=== PATIENT | female | born 1990 | race Hispanic/Latino ===

== ENCOUNTER 2017-07-21 09:20 | Emergency (ER) | payer SELFPAY ==
[2017-07-21 09:33] VITALS: BP 156/108
[2017-07-21 10:16] LABS: BUN/Creatinine Ratio 20; Blood Urea Nitrogen 12 mg/dL (7-17); Calcium 9.1 mg/dL (8.4-10.2); Carbon Dioxide 27 mmol/L (22-30); Chloride 98.5 mmol/L (98-107); Glucose 139 mg/dL (65-100); Sodium 136 mmol/L (137-145)
[2017-07-21 10:31] LABS: Anion Gap 16 mmol/L
[2017-07-21 10:32] LABS: Potassium 5.5 mmol/L (3.6-5.0)
[2017-07-21 11:38] LABS: Bacteria,Urine 1+ /HPF (Negative); Bilirubin,Urine NEG (Negative); Blood,Urine NEG (Negative); Ketones,Urine NEG (Negative); Leukocyte Esterase,Urine LG (Negative); Mucus,Urine FEW /HPF; Nitrite,Urine NEG (Negative); Protein,Urine <15 mg/dL mg/dL (Negative); Urobilinogen,Urine < 2.0 mg/dL (<2.0)
[2017-07-21 12:37] LABS: Hematocrit 35.6 % (30.3-42.9); Hemoglobin 11.5 gm/dl (10.1-14.3); Mean Corpuscular HGB Conc 32 % (30-34); Mean Corpuscular Volume 75 fl (79-97); Platelet Count 361 K/mm3 (140-440); Red Blood Count 4.75 M/mm3 (3.65-5.03); White Blood Count 6.4 K/mm3 (4.5-11.0)
[2017-07-21 12:39] LABS: Mean Corpuscular Hemoglobin 24 pg (28-32)
[2017-07-21 16:30] LABS: Basophils % (Auto) 0.3 % (0.0-1.8); Eosinophils % (Auto) 1.6 % (0.0-4.3)
== END 2017-07-21 17:00 | disposition left against medical advice (07) ==
LOC: ED 09:20
DX: R10.9 Unspecified abdominal pain (principal); Z53.21 Procedure and treatment not carried out due to patient leaving prior to being seen by health care provider
CPT/HCPCS: 36415; 80048; 81001; 81025; 85007; 85025

== ENCOUNTER 2018-11-25 04:58 | Emergency (ER) | payer SELFPAY ==
[2018-11-25] MEDS ORDERED: MORPHINE IV ONE (05:05)
[2018-11-25] MEDS ORDERED: NACL 0.9% 1000 ML 1,000 ML IV ONE (05:05)
[2018-11-25] MEDS ORDERED: NACL 0.9% 1000 ML 1,000 ML ONE (05:07)
--- NOTE | 2018-11-25 05:14 | Emergency Department Report ---
<KUSUM ZAMORA - Last Filed: 11/25/18 05:54> ED HPI - General Chief complaint: Vaginal Bleeding Stated complaint: VAGINAL BLEEDING/ Time Seen by Provider: 11/25/18 05:05 Source: patient, family Mode of arrival: Ambulatory Limitations: No Limitations - History of Present Illness Initial comments: Patient is a 28-year-old female who states she is partially 14 weeks who is having a probable miscarriage. Patient states she woke up this morning to go to work she started developing some lower abdominal cramping. Patient then began to have vaginal bleeding which was heavy. Patient states p ain is a relative severity. Patient on arrival to the emergency department to pass what appeared to be small fetus. Associated symptoms: vaginal bleeding, abdominal pain. denies: nausea/vomiting, vaginal discharge, dysuria, headache, vision changes, malaise, dysparuenia, r ruby, seizure, shortness of breath, syncope, weakness - Related Data Previous Rx's Medication Instructions Recorded Last Taken Type HYDROcodone/APAP 5-325 [[place] 1 each PO Q6HR PRN #12 tablet 11/25/18 Unknown Rx 5/325] Misoprostol [Cytotec] 200 mcg PO Q2HR #6 tablet 11/25/18 Unknown Rx Ondansetron [Zofran Odt] 4 mg PO Q4HR PRN #20 tab.rapdis 11/25/18 Unknown Rx Allergies Allergy/AdvReac Type Severity Reaction Status Date / Time No Known Allergies Allergy Unverified 07/21/17 09:35 ED Review of Systems Comment: All other systems reviewed and negative ED Past Medical Hx - Past Medical History Previous Medical History?: Yes Additional medical history: estimates 15-16 weeks - Surgical History Past Surgical History?: No - Social History Smoking Status: Never Smoker - Medications Home Medications: Home Medications Medication Instructions Recorded Confirmed Last Taken Type HYDROcodone/APAP 5-325 [[place] 1 each PO Q6HR PRN #12 tablet 11/25/18 Unknown Rx 5/325] Misoprostol [Cytotec] 200 mcg PO Q2HR #6 tablet 11/25/18 Unknown Rx Ondansetron [Zofran Odt] 4 mg PO Q4HR PRN #20 tab.rapdis 11/25/18 Unknown Rx ED Physical Exam - General Limitations: No Limitations General appearance: alert, in no apparent distress - Head Head exam: Present: atraumatic, normocephalic - Eye Eye exam: Present: normal appearance - ENT ENT exam: Present: mucous membranes moist - Neck Neck exam: Present: normal inspection - Respiratory Respiratory exam: Present: normal lung sounds bilaterally. Absent: respiratory distress, wheezes, rales, rhonchi - Cardiovascular Cardiovascular Exam: Present: regular rate, normal rhythm. Absent: systolic murmur, diastolic murmur, rubs, gallop - GI/Abdominal GI/Abdominal exam: Present: soft, tenderness, normal bowel sounds. Absent: distended, guarding, rebound, rigid - Extremities Exam Extremities exam: Present: normal inspection - Back Exam Back exam: Present: normal inspection - Neurological Exam Neurological exam: Present: alert, oriented X3 - Psychiatric Psychiatric exam: Present: normal affect, normal mood - Skin Skin exam: Present: warm, dry, intact, normal color. Absent: rash ED Medical Decision Making - Lab Data Result diagrams: 11/25/18 05:25 11/25/18 05:25 ED Disposition Clinical Impression: Complete miscarriage Disposition: DC-01 TO HOME OR SELFCARE Condition: Stable Instructions: Spontaneous Miscarriage (ED) Additional Instructions: return if there is bleeding Prescriptions: Misoprostol [Cytotec] 200 mcg PO Q2HR #6 tablet HYDROcodone/APAP 5-325 [[place] 5/325] 1 each PO Q6HR PRN #12 tablet PRN Reason: Pain Ondansetron [Zofran Odt] 4 mg PO Q4HR PRN #20 tab.rapdis PRN Reason: Nausea Referrals: [facility] MD ERIKA [Primary Care Provider] - 3-5 Days RIYA HUFF MD [Staff Physician] - 3-5 Days <DARRYL DINH - Last Filed: 11/25/18 08:32> ED Review of Systems ROS: Stated complaint: VAGINAL BLEEDING/ Other details as noted in HPI ED Course Vital Signs 11/25/18 11/25/18 11/25/18 05:02 05:06 05:15 Pulse Rate 68 Respiratory 20 Rate Blood Pressure 160/98 160/98 O2 Sat by Pulse 99 100 97 Oximetry 11/25/18 11/25/18 11/25/18 05:31 05:45 06:01 Pulse Rate Respiratory Rate Blood Pressure 160/98 160/98 105/66 O2 Sat by Pulse 97 99 99 Oximetry 11/25/18 11/25/18 11/25/18 06:15 06:31 06:45 Pulse Rate Respiratory Rate Blood Pressure 105/66 105/66 105/66 O2 Sat by Pulse 100 98 100 Oximetry 11/25/18 07:00 Pulse Rate Respiratory Rate Blood Pressure 95/58 O2 Sat by Pulse 99 Oximetry ED Medical Decision Making - Lab Data Result diagrams: 11/25/18 05:25 11/25/18 05:25 Lab Results 11/25/18 11/25/18 11/25/18 Range/Units 05:25 05:25 05:25 WBC 5.1 (4.5-11.0) K/mm3 RBC 4.23 (3.65-5.03) M/mm3 Hgb 10.1 (10.1-14.3) gm/dl Hct 31.7 (30.3-42.9) % MCV 75 L (79-97) fl MCH 24 L (28-32) pg MCHC 32 (30-34) % RDW 16.1 H (13.2-15.2) % Plt Count 380 (140-440) K/mm3 Lymph % (Auto) 41.9 H (13.4-35.0) % [place]lier % (Auto) 6.4 (0.0-7.3) % Eos % (Auto) 2.9 (0.0-4.3) % Baso % (Auto) 0.2 (0.0-1.8) % Lymph # 2.1 (1.2-5.4) K/mm3 Collier # 0.3 (0.0-0.8) K/mm3 Eos # 0.1 (0.0-0.4) K/mm3 Baso # 0.0 (0.0-0.1) K/mm3 Seg Neutrophils % 48.6 (40.0-70.0) % Seg Neutrophils # 2.5 (1.8-7.7) K/mm3 PT 14.6 (12.2-14.9) Sec. INR 1.07 (0.87-1.13) APTT 26.8 (24.2-36.6) Sec. Sodium 139 (137-145) mmol/L Potassium 4.1 (3.6-5.0) mmol/L Chloride 101.0 (98-107) mmol/L Carbon Dioxide 25 (22-30) mmol/L Anion Gap 17 mmol/L BUN 11 (7-17) mg/dL Creatinine 0.7 (0.7-1.2) mg/dL Estimated GFR > 60 ml/min BUN/Creatinine Ratio 16 % Glucose 265 H (65-100) mg/dL Calcium 8.0 L (8.4-10.2) mg/dL HCG, Quant (0-4) mIU/mL Blood Type 11/25/18 11/25/18 Range/Units 05:25 05:25 WBC (4.5-11.0) K/mm3 RBC (3.65-5.03) M/mm3 Hgb (10.1-14.3) gm/dl Hct (30.3-42.9) % MCV (79-97) fl MCH (28-32) pg MCHC (30-34) % RDW (13.2-15.2) % Plt Count (140-440) K/mm3 Lymph % (Auto) (13.4-35.0) % Collier % (Auto) (0.0-7.3) % Eos % (Auto) (0.0-4.3) % Baso % (Auto) (0.0-1.8) % Lymph # (1.2-5.4) K/mm3 Collier # (0.0-0.8) K/mm3 Eos # (0.0-0.4) K/mm3 Baso # (0.0-0.1) K/mm3 Seg Neutrophils % (40.0-70.0) % Seg Neutrophils # (1.8-7.7) K/mm3 PT (12.2-14.9) Sec. INR (0.87-1.13) APTT (24.2-36.6) Sec. Sodium (137-145) mmol/L Potassium (3.6-5.0) mmol/L Chloride (98-107) mmol/L Carbon Dioxide (22-30) mmol/L Anion Gap mmol/L BUN (7-17) mg/dL Creatinine (0.7-1.2) mg/dL Estimated GFR ml/min BUN/Creatinine Ratio % Glucose (65-100) mg/dL Calcium (8.4-10.2) mg/dL HCG, Quant 1458 H (0-4) mIU/mL Blood Type B POSITIVE - Radiology Data Radiology results: report reviewed - Medical Decision Making Results were discussed with patient Contacted Dr. Huff and patient discussed in detail Ultrasound results reviewed as well as laboratory values Plan is for the patient to get a Cytotec prescription and to follow-up with her [employer] within the next 1-2 days Discussed side effects a Cytotec with the patient and the need to follow up with her [employer] as was another [facility]'s health the patient states she understands the plan of follow-up Bleeding has subsided Critical care attestation.: If time is entered above; I have spent that time in minutes in the direct care of this critically ill patient, excluding procedure time. ED Disposition Is pt being admited?: No Does the pt Need Aspirin: No Time of Disposition: 08:31
[2018-11-25 05:38] LABS: Basophils % (Auto) 0.2 % (0.0-1.8); Eosinophils # (Auto) 0.1 K/mm3 (0.0-0.4); Eosinophils % (Auto) 2.9 % (0.0-4.3); Hematocrit 31.7 % (30.3-42.9); Hemoglobin 10.1 gm/dl (10.1-14.3); Lymphocytes # (Auto) 2.1 K/mm3 (1.2-5.4); Lymphocytes % (Auto) 41.9 % (13.4-35.0); Mean Corpuscular HGB Conc 32 % (30-34); Mean Corpuscular Volume 75 fl (79-97); Monocytes # (Auto) 0.3 K/mm3 (0.0-0.8); Monocytes % (Auto) 6.4 % (0.0-7.3); Platelet Count 380 K/mm3 (140-440); Red Blood Count 4.23 M/mm3 (3.65-5.03); Red Cell Distribution Width 16.1 % (13.2-15.2)
[2018-11-25 05:41] LABS: Mean Corpuscular Hemoglobin 24 pg (28-32)
[2018-11-25 05:49] LABS: INR 1.07 (0.87-1.13); Partial Thromboplastin Time 26.8 Sec. (24.2-36.6)
[2018-11-25 05:54] LABS: BUN/Creatinine Ratio 16; Blood Urea Nitrogen 11 mg/dL (7-17); Hemolysis Index 0
--- NOTE | 2018-11-25 07:44 | Ultrasound Report ---
PROCEDURE: US OB <= 14 WEEKS FETUS TECHNIQUE: Transabdominal imaging was obtained of the pelvis. HISTORY: Vaginal bleeding with pain the patient passed the fetus in the emergency room. COMPARISONS: None FINDINGS: The uterus is anteverted measuring 10.2 x 5.8 x 6.1 cm. There is no evidence of an intact IUP. There is thickened heterogeneous endometrium measuring 27.6 mm in thickness. Free fluid is not seen. The ov kayleen are normal in size contour and echotexture. The right ovary measures 2.9 x 2.3 x 2.0 cm. The le ft ovary measures 3.8 x 2.8 x 2.1 cm. IMPRESSION: Complete with thickened heterogeneous endometrium. Retained products of conception cannot be excluded.. This document is electronically signed by Kyler West MD., November 25 2018 07:42:26 AM ET
[2018-11-25 09:47] VITALS: BP 109/76
== END 2018-11-25 09:45 | disposition home or self-care (01) ==
LOC: ED 04:58
DX: O03.80 Unspecified complication following complete or unspecified spontaneous abortion (principal); Z3A.14 14 weeks gestation of pregnancy
CPT/HCPCS: 36415; 76801; 80048; 84702; 85025; 85610; 85730; 86900; 86901; 96374; 99284; J2270; J7030